=== PATIENT | female | born 1995 | race African-American/Black ===

== ENCOUNTER 2017-10-02 14:27 | Emergency (ER) | payer OTHER ==
[~2017-10-02] VITALS: Ht 160 cm; Wt 58.3 kg
[~2017-10-02 14:27] MED LIST: NOHOMEMEDS
[2017-10-02] MEDS ORDERED: SPRINTEC1 EACH PO (17:05)
[2017-10-02] MEDS ORDERED: FLUOXETINE HCL10 MG PO (17:05)
[2017-10-02 17:13] LABS: HEMATOCRIT 41.6 % (36.0-46.0); HEMOGLOBIN 14.7 G/DL (11.9-15.5); MCH 33.1 PG (29.0-34.0); MCHC 35.3 G/DL (30.0-36.0); MCV 93.7 FL (83-99); PLATELET COUNT 273 K/uL (156-360); RBC DIS.WIDTH-SD 37.7 % (39-53); RED BLOOD COUNT 4.44 M/uL (3.80-5.20)
[2017-10-02 17:21] LABS: D-DIMER ELISA < 150.00 ng/mLDDU (<230)
[2017-10-02 17:24] LABS: CHLORIDE 105 mEq/L (99-109); SODIUM 137 mEq/L (136-147)
[2017-10-02 17:26] LABS: GLUCOSE 91 mg/dL (70-99)
[2017-10-02 17:30] LABS: CREATININE 0.8 mg/dL (0.6-1.3); GFR ESTIMATE (CALCULATED) > 59 mL/min/; UREA NITROGEN (BUN) 9 mg/dL (9-23)
[2017-10-02] MEDS ORDERED: MOTRIN600 MG PO (17:47)
[2017-10-02] MEDS ORDERED: SKELAXIN800 MG PO (17:47)
[2017-10-02 18:17] VITALS: BP 119/76
== END 2017-10-02 18:21 | disposition home or self-care (01) ==
LOC: EME 14:27
PROVIDERS: Physician Assistant
DX: R55 Syncope and collapse (principal); S13.4XXA Sprain of ligaments of cervical spine, initial encounter; V47.0XXA Car driver injured in collision with fixed or stationary object in nontraffic accident, initial encounter; Y92.414 Local residential or business street as the place of occurrence of the external cause; F32.9 Major depressive disorder, single episode, unspecified; F41.9 Anxiety disorder, unspecified
CPT/HCPCS: 72125; 80048; 82948; 85027; 85379; 93005; 99281; 99285; J7030